=== PATIENT | female | born 2000 | race Caucasian/White ===

== ENCOUNTER 2022-08-26 12:20 | Outpatient (REF) | payer OTHER, SELFPAY ==
[2022-08-26 14:57] LABS: HCG Quantitative < 2 mIU/mL
== END 2022-08-26 12:21 | disposition home or self-care (01) ==
LOC: HO.LAB 12:20
PROVIDERS: Visit Provider Family Medicine Adult Medicine
DX: Z32.01 Encounter for pregnancy test, result positive (principal)
CPT/HCPCS: 36415; 84702

== ENCOUNTER 2022-08-29 14:20 | Outpatient (REF) | payer OTHER, SELFPAY ==
--- NOTE | ~2022-08-29 | XR_ITS ---
EXAMINATION: XR FOOT, LEFT XR ANKLE, LEFT CLINICAL INFORMATION: Pain left foot and ankle. TECHNIQUE: AP, oblique and lateral views of the left foot as well as AP and oblique views of the left ankle. COMPARISON: None. FINDINGS: LEFT FOOT/ANKLE: Diffuse soft tissue swelling at the ankle. Minimal degenerative changes 1st tarsometatarsal joint with joint space narrowing and hypertrophic change. Tiny density in the superficial soft tissues lateral to the base of the 5th metatarsal, possibly representing a foreign body versus calcification of indeterminate age. This may be visualized at the plantar aspect of the foot on the lateral view. XR/XR ankle LT min 3V IMPRESSION: 1. Minimal degenerative changes 1st tarsometatarsal joint. 2. Tiny density in the superficial soft tissues lateral to the base of the 5th metatarsal, possibly representing a foreign body versus calcification of indeterminate age. This may be visualized at the plantar aspect of the foot on the lateral view. Correlation with the clinical exam recommended to determine further management. Recommend follow-up imaging in 10-14 days if fracture is suspected. Additional imaging with CT scan or MRI should be considered for better visualization as these modalities are much more sensitive for detection of fracture, foreign body or other underlying pathology.
--- NOTE | ~2022-08-29 | XR_ITS ---
EXAMINATION: XR FOOT, LEFT XR ANKLE, LEFT CLINICAL INFORMATION: Pain left foot and ankle. TECHNIQUE: AP, oblique and lateral views of the left foot as well as AP and oblique views of the left ankle. COMPARISON: None. FINDINGS: LEFT FOOT/ANKLE: Diffuse soft tissue swelling at the ankle. Minimal degenerative changes 1st tarsometatarsal joint with joint space narrowing and hypertrophic change. Tiny density in the superficial soft tissues lateral to the base of the 5th metatarsal, possibly representing a foreign body versus calcification of indeterminate age. This may be visualized at the plantar aspect of the foot on the lateral view. XR/XR foot LT min 3V IMPRESSION: 1. Minimal degenerative changes 1st tarsometatarsal joint. 2. Tiny density in the superficial soft tissues lateral to the base of the 5th metatarsal, possibly representing a foreign body versus calcification of indeterminate age. This may be visualized at the plantar aspect of the foot on the lateral view. Correlation with the clinical exam recommended to determine further management. Recommend follow-up imaging in 10-14 days if fracture is suspected. Additional imaging with CT scan or MRI should be considered for better visualization as these modalities are much more sensitive for detection of fracture, foreign body or other underlying pathology.
== END 2022-08-29 14:21 | disposition home or self-care (01) ==
LOC: HO.XRAY 14:20
PROVIDERS: Visit Provider Family Medicine Adult Medicine
DX: M25.572 Pain in left ankle and joints of left foot (principal)
CPT/HCPCS: 73610; 73630

== ENCOUNTER 2022-12-09 09:20 | Outpatient (REF) | payer OTHER, SELFPAY ==
[2022-12-09 10:16] LABS: Estimated Average Glucose 117 mg/dL; Hemoglobin A1c % 5.7 % (<6.0)
[2022-12-09 11:13] LABS: TSH reflex Free T4 1.35 uIU/mL (0.32-4.0)
== END 2022-12-09 09:21 | disposition home or self-care (01) ==
LOC: HO.LAB 09:20
PROVIDERS: Visit Provider Family Medicine Adult Medicine
DX: Z13.29 Encounter for screening for other suspected endocrine disorder (principal); Z13.1 Encounter for screening for diabetes mellitus
CPT/HCPCS: 36415; 83036; 84443